=== PATIENT | female | born 1955 | race Two or more races ===

== ENCOUNTER → 2016-08-21 | Outpatient (CLI) | payer BC | END | disposition home or self-care (01) | LOC: LABWHC1 15:58 | PROVIDERS: ATTEND Orthopaedic Surgery | DX: Z01.812 Encounter for preprocedural laboratory examination (principal) | CPT/HCPCS: 87070 ==

== ENCOUNTER 2016-09-02 11:07 | Inpatient (IN) | payer BC ==
[~2016-09-02 11:07] MED LIST: ACETAMINOPHEN TAB 500 MG TAB PO ONE; DEXAMETHASONE SOD PHOSPHATE 10 MG/ML 1 ML VIAL IV ONE; HYDROmorphone 1 MG/ML 1 ML SYRINGE IVP PRN; MELOXICAM 7.5 MG TAB PO ONE; ONDANSETRON 4 MG/2 ML VIAL IVP ONE; TRANEXAMIC ACID 1,000 MG in SODIUM CHLORIDE 0.9% 100 ML IVPB ONE; ceFAZolin 2 GM in SODIUM CHLORIDE 0.9% 100 ML IVPB ONE
[2016-09-02] MEDS: LACTATED RINGERS 1,000 ML IV SCH (12:28)
[2016-09-02] MEDS ORDERED: LIDOCAINE 1% 20 ML VIAL (10MG/ML) FOR IV START INTRADERMA ONE (12:29)
[2016-09-02] MEDS ORDERED: MIDAZOLAM 2 MG/2 ML VIAL IVP ONE ×2 (12:37→13:15)
[2016-09-02] MEDS: ROPIVACAINE 246.25 MG, EPINEPHrine 0.5 MG, KETOROLAC 30 MG, cloNIDine HCL/PF 80 MCG, WA... MISCELLANE ONE ×10 (13:26→14:45)
[2016-09-02] MEDS ORDERED: KETAMINE 10 MG/ML 20 ML VIAL ONE (13:27)
[2016-09-02] MEDS ORDERED: PHENYLEPHRINE-0.9% NACL SYG 1 MG/10 ML SYRINGE ONE (13:27)
[2016-09-02] MEDS ORDERED: TRANEXAMIC ACID 1,000 MG/10 ML VIAL ONE (13:27)
[2016-09-02] MEDS ORDERED: HEPARIN SODIUM,PORCINE 10,000 UNIT/ML 1 ML VIAL ONE (13:27)
[2016-09-02] MEDS ORDERED: PROPOFOL 10 MG/ML 20 ML VIAL IV ONE (13:27)
[2016-09-02] MEDS ORDERED: SODIUM CHLORIDE 0.9% IRRIG 1,000 ML BTL IRRIGATION ONE (13:27)
[2016-09-02] MEDS ORDERED: ceFAZolin 3,000 MG in SODIUM CHLORIDE 0.9% IRRIGATIO 3,000 ML IRRIGATION ONE (13:27)
[2016-09-02] MEDS ORDERED: SODIUM CHLORIDE 0.9% 100 ML BAG ONE (13:27)
[2016-09-02] MEDS ORDERED: ePHEDrine 50 MG/ML 1 ML AMP ONE (13:27)
[2016-09-02] MEDS ORDERED: MIDAZOLAM 2 MG/2 ML VIAL ONE (13:27)
[2016-09-02] MEDS ORDERED: fentaNYL (PF) 50 MCG/ML 2 ML AMP ONE (13:27)
--- NOTE | 2016-09-02 14:56 | FL ---
EXAMINATION TYPE: FL guidance operating room DATE OF EXAM: 09/02/2016 2:52 PM HISTORY: Flouroscopy time 51 seconds of fluoroscopy provided. IMPRESSION: 1. Fluoroscopy time.
--- NOTE | 2016-09-02 14:57 | XR ---
EXAMINATION TYPE: XR Hip Limited RT DATE OF EXAM: 09/02/2016 2:52 PM COMPARISON: NONE HISTORY: Right hip surgery TECHNIQUE: One view submitted. FINDINGS: There is a prosthetic hip in near anatomic alignment. IMPRESSION: 1. Limited assessment demonstrates only a portion of the prostheses.. Appears in near-anatomic align ment as visualized.
[2016-09-02] MEDS ORDERED: LACTATED RINGERS 1,000 ML IV ONE (15:00)
[2016-09-02] MEDS ORDERED: MAGNESIUM HYDROXIDE 2,400 MG/10 ML CUP PO PRN (15:12)
[2016-09-02] MEDS ORDERED: NALOXONE 0.4 MG/ML 1 ML VIAL IV PRN (15:12)
[2016-09-02] MEDS ORDERED: HYDROcodone/APAP 5-325MG 1 EACH TAB PO PRN (15:12)
[2016-09-02] MEDS ORDERED: DIAZEPAM 5 MG TAB PO PRN ×2 (15:12)
[2016-09-02] MEDS ORDERED: HYDROmorphone 1 MG/ML 1 ML SYRINGE IVP PRN ×3 (15:12)
[2016-09-02] MEDS ORDERED: ONDANSETRON 4 MG/2 ML VIAL IVP PRN (15:12)
--- NOTE | 2016-09-02 15:19 | P.OP ---
Date of Procedure: 09/02/16 Preoperative Diagnosis: Severe osteoarthritis right hip Postoperative Diagnosis: Severe osteoarthritis right hip Procedure(s) Performed: Right total hip arthroplasty with a direct anterior approach Implants: Salazar and nephew Polarstem size 1 standard Salazar [employer] Nephew R3, 3 hole acetabular shell, 48 mm Salazar [employer]hew reflection 6.5 mm cancellus screw, 20 mm 3 Salazar [employer]hew R3, XLPE 20 acetabular liner Salazar [employer] Nephew Oxinium femoral head 32 m, +0 All components were press-fit. The articulation is ceramic on polyethylene. Anesthesia: spinal Surgeon: Layo Bañuelos Ice Guard Inspector #1: Dulce Veliz Ice Guard Inspector #2: Kezia Thakkar Estimated Blood Loss (ml): 150 (55 mL returned with Cell Saver) Pathology: other (Femoral head) Condition: stable Disposition: PACU Indications for Procedure: After failure of conservative treatment we discussed the surgical and nonsurgical treatment options at length. Patient wishes to proceed with a total hip arthroplasty with a direct anterior approach. Complications specific to this procedure were discussed at length, including but not limited to infection, leg length discrepancy, dislocation, and nerve injury. Patient is aware of all these complications and informed consent was obtained Operative Findings: The operative findings are consistent with severe osteoarthritis of the right hip Description of Procedure: Patient was seen and evaluated in the preoperative area, consent was reviewed, and the surgical site was marked with a skin marker. Patient was then brought to the operating room and given prophylactic antibiotics intravenously. 1 g of Tranexamic acid was also given. A spinal anesthetic was administered by the anesthesia department. The patient was then placed on the [place] table with the bony prominences well-padded. The hip area was then prepped and draped in usual sterile fashion. A universal timeout was then performed, which confirmed the patient's name, surgical site, ALLERGIES, and procedure being performed. Next the incision site was located at 1 cm distal and 1 cm lateral to the anterior superior iliac spine. The skin and subcutaneous tissues were sharply incised. Incision was carefully dissected down to the fascia overlying the tensor fascia sascha muscle. This fascia was then incised in line with the incision. Next, using blunt finger dissection, the tensor fascia sascha muscle was dissected off its investing fascia. The muscle was then carefully retracted laterally with a cobra retractor over the lateral neck of the femur. Next, the circumflex vessels were identified and cauterized using the AquaMantis device. The anterior hip capsule was then exposed. The capsule was then opened and an inverted T fashion. Retention sutures were placed in the inferior arms of the capsule. Cobra retractors were then placed intracapsularly. The proximal femur was then visualized. The femoral neck was then osteotomized appropriate level above the lesser trochanter. Small amount of traction was placed with the [place] table. A small wedge of bone was then removed from the remaining femoral head. Next, using a corkscrew femoral head was easily removed from the acetabulum. On gross visual inspection, the femoral head had complete loss of articular cartilage in multiple periarticular osteophytes. Attention was then turned to the acetabulum. the acetabulum was exposed and any remaining labrum was excised. Sequential reaming of the acetabulum was performed using fluoroscopic guidance. When the appropriate size was reached, a trial was then placed. The position and fit of the trial was checked with fluoroscopy. The trial was then removed. Then, using fluoroscopic guidance, the final implant was impacted at 20 of anteversion and 40 of abduction, and fully seated in the acetabulum. 3 screws were then placed in the acetabulum. Again fluoroscopy was used to check position of the screws. Next, the liner was then impacted, with a 20 elevated liner located in the anterior superior quadrant. Component locking was confirmed. Attention was then directed to the femur. With the aid of the [place] table, the femur was externally rotated to approximately 130, extended, and abducted under the opposite leg. A side hook was then placed under the proximal femur, and the side hook elevator was used to elevate the proximal femur. Retractors were then placed. A capsular release was performed, as well as a release of the conjoined tendon, which afforded excellent visualization of the proximal femur. Next, a box osteotome was used to lateralize the proximal femur. A etcher hand was then used to locate the femoral canal. Sequential broaching was then performed with appropriate size which afforded excellent fixation in the proximal femur. A trial was then placed with appropriate head and neck, and the hip was gently reduced with the aid of the [place] table. Fluoroscopy was then used to check position of the components, as well as to ensure equal leg lengths. The hip was then gently dislocated and the trials were then removed. Final implants were then impacted and the hip was again reduced. Final fluoroscopic x-rays confirmed that the components were in anatomic position, as well as equal leg lengths. The hip was also taken through range of motion, and found to be stable. The hip was then copiously irrigated with antibiotic solution with pulsatile lavage. The hip was then irrigated with Irrisept solution. The soft tissues were then injected with a ropivacaine solution, which consisted of 246.25 mg of ropivacaine, 0.5 mg of epinephrine, 30 mg of Toradol, 80 g of clonidine, and 48.45 mL of sterile water, for a total of 100 mL of fluid injected. A second dose of 1 g of Tranexamic acid was also given. the fascia was then closed with 2-0 strata fix suture. The subcutaneous tissue was closed with 3-0 Vicryl. The subcuticular tissue was closed with 3-0 strata fix suture. The skin was then closed with Dermabond tape. The patient was then transferred to the recovery room in stable condition. The podiatrist assistant GIANNA Morin was required due to the complexity of surgery , and the need for skilled neurosurgical nurse for positioning, draping, exposure , retraction, and closure of the wound.
--- NOTE | 2016-09-02 15:34 | XR ---
EXAMINATION TYPE: XR Hip Limited RT DATE OF EXAM: 09/02/2016 3:29 PM COMPARISON: NONE HISTORY: Postop TECHNIQUE: One view submitted. FINDINGS: There is a prosthetic hip in near anatomic alignment. There is soft tissue edema and emphysema. IMPRESSION: 1. Postoperative change. Appears in near-anatomic alignment.
[2016-09-02 16:29] VITALS: BMI 4104.0
[2016-09-02] MEDS ORDERED: FAMOTIDINE 20 MG TAB PO PRN (17:11)
[2016-09-02] MEDS: HYDROcodone/APAP 5-325MG 1 EACH TAB PO PRN (18:20)
[2016-09-02] MEDS: SODIUM CHLORIDE 0.9% 1,000 ML IV SCH (18:21)
[2016-09-02] MEDS ORDERED: ATORVASTATIN 20 MG TAB PO SCH (18:30)
[2016-09-02] MEDS ORDERED: SENNOSIDES-DOCUSATE SODIUM 1 EACH TAB PO SCH (21:00)
[2016-09-02] MEDS ORDERED: ZOLPIDEM 10 MG TAB PO PRN (21:00)
[2016-09-02] MEDS: ASPIRIN 325 MG TAB PO SCH (21:15)
[2016-09-02] MEDS: ceFAZolin 2 GM in SODIUM CHLORIDE 0.9% 100 ML IVPB SCH (21:16)
[2016-09-03] MEDS: HYDROcodone/APAP 5-325MG 1 EACH TAB PO PRN ×3 (00:51→13:21)
[2016-09-03 02:08] VITALS: RESP 16
[2016-09-03] MEDS: ceFAZolin 2 GM in SODIUM CHLORIDE 0.9% 100 ML IVPB SCH (04:30)
--- NOTE | 2016-09-03 06:19 | CONS ---
DATE OF CONSULTATION: 09/02/2016 REASON FOR CONSULTATION: Medical management requested by Dr. Bañuelos. CONSULTATION: This is a pleasant 60-year-old patient of Dr. Armenta who has undergone right total hip arthroplasty. Pain is controlled. No nausea or vomiting. No chest pain. Patient's chronic stable medical conditions include gastroesophageal reflux disease, hypertension, osteoarthritis, insomnia. Lying in bed, patient's is at the bedside. REVIEW OF SYSTEMS: CONSTITUTIONAL: None. HEENT: None. RESPIRATORY: None. CARDIOVASCULAR: None. GASTROINTESTINAL: Heartburn. GENITOURINARY: None. MUSCULOSKELETAL: Pain in the joints. DERMATOLOGICAL: None. HEMATOLOGICAL: None. LYMPHATIC: None. PSYCHIATRY/NEUROLOGICAL: Difficulty sleeping. Past medical history of gastroesophageal reflux disease, hypertension, osteoarthritis, insomnia. PAST SURGICAL HISTORY: Orthopedic surgery, tonsillectomy, right knee arthroscopy. SOCIAL HISTORY: Patient smokes about 2 cigarettes a day. , drinks about 7 drinks per week. FAMILY HISTORY: Lung cancer. HOME MEDICATIONS: 1. Ambien 10 mg p.o. q.h.s. p.r.n. 2. Zantac 1 tablet p.o. daily p.r.n. 3. Dyazide 37.5/25, 1 tablet p.o. daily. 4. Menopausal vitamin pack 1 tablet daily. 5. Motrin 800 mg p.o. q.8 p.r.n. 6. Lipitor 20 mg p.o. before supper. ALLERGIES: None. On examination, temperature 97.6, pulse 86, respiration 20, blood pressure 117/69, pulse ox 98% on 3-L. GENERAL APPEARANCE: Average build, sitting up in bed, not in distress. EYES: Pupils equal. Conjunctivae normal. HEENT: External appearance of nose and ears normal. Oral cavity normal. NECK: JVD not raised. Mass not palpable. RESPIRATORY: Effort normal. Lungs are clear. CARDIOVASCULAR: First and second sounds normal. No edema. ABDOMEN: Soft, nontender. Liver and spleen not palpable. LYMPHATIC: No lymph node palpable in the neck or axillae. PSYCHIATRY: Alert and oriented x3. Mood and affect were normal. EXTREMITIES: Right hip in dressing. INVESTIGATIONS: None. ASSESSMENT: 1. Gastroesophageal reflux disease. 2. Essential hypertension. 3. Chronic insomnia. 4. Right total hip arthroplasty. 5. Hyperlipidemia. PLAN: Patient's home medications are resumed. Patient is getting aspirin for DVT prophylaxis, Venodyne boots in place. Care was discussed with the patient and family at the bedside. Questions were answered. Thank you Dr. Bañuelos.
[2016-09-03] MEDS: hydrOXYzine PAMOATE 25 MG CAP PO PRN ×2 (06:53→13:22)
[2016-09-03 07:44] VITALS: BP 112/69; PULSE 63; TEMP 97.6
[2016-09-03 07:50] LABS: Basophils % (A) 0 %; CH 32.8; CHCM 33.6; Eosinophils # (A) 0.1 k/uL (0-0.7); Eosinophils % (A) 1 %; HCT 31.5 % (34.0-46.0); HDW 2.18; HGB 10.5 gm/dL (11.4-16.0); Luc # (Auto) 0.12; Luc % (Auto) 1; Lymphocytes # (A) 1.7 k/uL (1.0-4.8); Lymphocytes % (A) 15 %; MCH 32.5 pg (25.0-35.0); MCHC 33.2 g/dL (31.0-37.0); MCV 97.8 fL (80.0-100.0); Mean Platelet Volume 6.4; Monocytes # (A) 0.8 k/uL (0-1.0); Monocytes % (A) 7 %; Neutrophils # (A) 9.1 k/uL (1.3-7.7); Neutrophils % (A) 77 %; RBC 3.22 m/uL (3.80-5.40); RDW 13.2 % (11.5-15.5); WBC 11.8 k/uL (3.8-10.6); WBC (Perox) 11.83
[2016-09-03] MEDS: LACTATED RINGERS 1,000 ML IV SCH (08:39)
[2016-09-03] MEDS: SODIUM CHLORIDE 0.9% 1,000 ML IV SCH (08:39)
[2016-09-03] MEDS: ASPIRIN 325 MG TAB PO SCH (08:44)
[2016-09-03] MEDS ORDERED: TRIAMTERENE-HCTZ 37.5-25MG 1 EACH CAP PO SCH (09:00)
[2016-09-03] MEDS ORDERED: MELOXICAM 7.5 MG TAB PO SCH (09:00)
--- NOTE | 2016-09-03 09:04 | P.DS ---
Providers Date of admission: 09/02/16 11:07 Expected date of discharge: 09/03/16 Attending physician: Layo Bañuelos Consults: 09/02/16 15:12 Consult Physician Routine Consulting Provider: Louie Olvera Consult Reason/Comments: medical management Do you want consulting provider notified?: Yes Primary care physician: Venus Rodriguez [facility] Course: This is a 60-year-old female with known history of degenerative arthritis of the right hip. The patient presents for evaluation. After discussion and consideration patient elects to proceed with total hip arthroplasty. The patient is seen preoperatively by Dr. Bañuelos and cleared for surgery. Patient is admitted to [facility] on 09/02/2016 for total hip arthroplasty. The procedures performed without complication or sequelae. The patient is doing well postoperatively. Labs and vital signs are stable on day of discharge. On day of discharge patient's hip incision is healing well. There is minimal erythema. There is no drainage noted at this time. There is minimal soft tissue swelling to the hip and thigh. Patient has full foot and ankle motion without difficulty or pain. Patient has been ambulating. Neurovascular status to the right lower extremity is intact. Patient is discharged home in good condition. Please see med rec for accurate list of home medications. Plan - Discharge Summary New Discharge Prescriptions: Aspirin 325 mg PO BID #60 tab HYDROcodone/APAP 5-325MG [Jackson 5-325] 1 - 2 tab PO Q4-6H PRN #90 tab PRN Reason: Pain Sennosides-Docusate Sodium [Senokot-S] 1 tab PO BID #60 tablet Discharge Medication List Acetaminophen Tab [Tylenol Tab] 650 mg PO Q4-6H PRN 08/29/16 [History] Atorvastatin [Lipitor] 20 mg PO PC-SUPPER 08/29/16 [History] Ibuprofen [Motrin] 800 mg PO Q8HR PRN 08/29/16 [History] Menopause Vitamin Pack 1 tab PO DAILY 08/29/16 [History] Triamterene-Hctz 37.5-25Mg [Dyazide 37.5-25 Capsule] 1 cap PO DAILY 08/29/16 [ History] Zantac (Unknown Dose Otc) 1 tab PO DAILY PRN 08/29/16 [History] Zolpidem [Ambien] 10 mg PO HS PRN 08/29/16 [History] Aspirin 325 mg PO BID #60 tab 09/03/16 [Rx] HYDROcodone/APAP 5-325MG [Jackson 5-325] 1 - 2 tab PO Q4-6H PRN #90 tab 09/03/16 [ Rx] Sennosides-Docusate Sodium [Senokot-S] 1 tab PO BID #60 tablet 09/03/16 [Rx] Follow up Appointment(s)/Referral(s): Layo Bañuelos DO [Doctor of Osteopathic Medicine] - 2 Weeks Activity/Diet/Wound Care/Special Instructions: Weightbearing as tolerated with walker May shower after 2 days if no drainage from the incision Follow-up with [facility] in 2 weeks with any questions or concerns Discharge Disposition: HOME WITH HOME HEALTH SERVICES
--- NOTE | 2016-09-03 12:40 | PN ---
DATE OF SERVICE: 09/03/2016 REASON FOR CONSULTATION: Right hip surgery. INTERVAL HISTORY: Patient is status post right hip surgery, doing well. Sitting up, comfortable. Did tolerate breakfast. Did work with physical therapy. Has been out of bed. Review of systems done for constitutional, cardiovascular, GI, pulmonary, musculoskeletal; relevant findings as above. Current medications are reviewed. On examination, temperature 97.6, pulse 53, respirations 16, blood pressure 112/69, pulse ox 97%. GENERAL APPEARANCE: Propped up in bed, comfortable. EYES: Pupils equal. Conjunctivae normal. NECK: JVD not raised. Mass not palpable. RESPIRATORY: Effort normal. Lungs are clear. CARDIOVASCULAR: First and second sounds normal. No edema. ABDOMEN: Soft, nontender. PSYCHIATRY: Alert and oriented x3. Mood and affect normal. INVESTIGATIONS: White count 11.8, hemoglobin 10.5. ASSESSMENT: 1. Gastroesophageal reflux disease. 2. Essential hypertension. 3. Chronic insomnia, idiopathic. 4. Right total hip arthroplasty. 5. Hyperlipidemia. 6. Possibly acute blood loss anemia as expected from surgery. PLAN: Continue current medication and treatment plan. Care was discussed with the patient and patient's at the bedside. Thank you Dr. Bañuelos.
== END 2016-09-03 16:13 | disposition home health service (06) | DRG 470 ==
LOC: 2ORMAIN 11:07 → 3SUR 15:09
PROVIDERS: ADMIT Orthopaedic Surgery; ATTEND Orthopaedic Surgery
PROC: 0SR904A Replacement of Right Hip Joint with Ceramic on Polyethylene Synthetic Substitute, Uncemented, Open Approach (ICD-10-PCS; principal; 2016-09-02 12:45)
DX: M16.11 Unilateral primary osteoarthritis, right hip (principal); I10 Essential (primary) hypertension; E78.5 Hyperlipidemia, unspecified; F17.210 Nicotine dependence, cigarettes, uncomplicated; F51.04 Psychophysiologic insomnia; K21.9 Gastro-esophageal reflux disease without esophagitis; Z79.899 Other long term (current) drug therapy
CPT/HCPCS: 73501; 85025; 86850; 86891; 86900; 86901; 88300

== ENCOUNTER → 2019-10-19 | Outpatient (CLI) | payer BC ==
--- NOTE | 2019-10-19 15:11 | MR ---
EXAMINATION TYPE: MR knee RT wo con DATE OF EXAM: 10/19/2019 COMPARISON: Plain film 10/04/2019 HISTORY: Right knee pain TECHNIQUE: Multiplanar, multisequence imaging of the right knee is performed without IV contrast. FINDINGS: MEDIAL MENISCUS: The root anchor of the posterior horn of the medial meniscus is thought to be disrup steph, there is fluid signal present at this level, frayed appearance is noted abnormal signal also pre sent within the body and anterior horn LATERAL MENISCUS: Anterior and posterior horns are intact without tear. CRUCIATE LIGAMENTS: The anterior and posterior cruciate ligaments are intact and unremarkable. COLLATERAL LIGAMENTS: Increased signal about the medial collateral ligament may be due to strain EXTENSOR MECHANISM: Visualized quadriceps and patellar tendons are intact. EFFUSION: Minimal joint effusion POPLITEAL CYST: Small semimembranosus gastrocnemius cyst is noted TRICOMPARTMENT SPACES: Maintained CARTILAGE: Intact BONE MARROW SIGNAL: Within the proximal tibia medially there is intermediate signal present in the me taphysis on T1, increased signal on T2-weighted sequences, the trabecular pattern is disrupted, there is linear low signal present seen better on T1-weighted sequences in the tibial plateau medially con sistent with nondisplaced fracture, microtrabecular fractures and bone marrow edema, contusion. OTHER: Subcutaneous edema changes are present anteriorly in the prepatellar location IMPRESSION: Nondisplaced fracture of the medial aspect of the proximal tibia, and is consistent with posttraumati c tear of the posterior root anchor of the of the medial meniscus
== END | disposition home or self-care (01) ==
LOC: RADMRIMAIN 13:14
PROVIDERS: ATTEND Orthopaedic Surgery
DX: S82.135A Nondisplaced fracture of medial condyle of left tibia, initial encounter for closed fracture (principal)

== ENCOUNTER → 2019-11-08 | Outpatient (CLI) | payer BC ==
[2019-11-08 15:16] LABS: Basophils % (A) 1 %; Eosinophils # (A) 0.3 k/uL (0-0.7); Eosinophils % (A) 5 %; HCT 35.8 % (34.0-46.0); HGB 11.8 gm/dL (11.4-16.0); Lymphocytes # (A) 2.2 k/uL (1.0-4.8); Lymphocytes % (A) 35 %; MCH 32.1 pg (25.0-35.0); MCHC 32.9 g/dL (31.0-37.0); MCV 97.7 fL (80.0-100.0); Mean Platelet Volume 6.7; Monocytes # (A) 0.4 k/uL (0-1.0); Monocytes % (A) 6 %; Neutrophils # (A) 3.4 k/uL (1.3-7.7); Neutrophils % (A) 53 %; Platelet Count 422 k/uL (150-450); RBC 3.66 m/uL (3.80-5.40); RDW 12.8 % (11.5-15.5); WBC 6.4 k/uL (3.8-10.6)
[2019-11-08 15:17] LABS: Potassium 3.9 mmol/L (3.5-5.1)
== END | disposition home or self-care (01) ==
LOC: LABPAT 14:21
PROVIDERS: ATTEND Orthopaedic Surgery
DX: Z01.818 Encounter for other preprocedural examination (principal); M23.91 Unspecified internal derangement of right knee
CPT/HCPCS: 36415; 80051; 85025; 93005

== ENCOUNTER 2019-11-14 08:57 | Day surgery (SDC) | payer BC ==
[2019-11-09 15:20] VITALS: BMI 27.3
--- NOTE | 2019-11-13 11:27 | HP ---
HISTORY AND PHYSICAL DATE OF SURGERY: 11/14/2019 HISTORY OF PRESENT ILLNESS: Gill Rojas is a 64-year-old patient seen with progressive right knee pain. We discussed options. She elected to proceed with right knee arthroscopy. Consent was obtained. PAST MEDICAL HISTORY: Hypertension, hyperlipidemia. PAST SURGICAL HISTORY: Right total hip arthroplasty, right knee arthroscopy. MEDICATIONS: Atorvastatin, ibuprofen, triamterene/hydrochlorothiazide, ibuprofen. ALLERGIES: None. SOCIAL HISTORY: She denies tobacco use. PHYSICAL EXAMINATION: Evaluation of the right knee shows range of motion 0-130. Mild effusion. Tenderness along the medial joint line. Tenderness along lateral joint line. Positive medial Orion's. Ligaments stable. Hip rotation without pain. Distal neurovascular exam is intact. IMAGING: Right knee radiographs revealed some sclerosis along the medial tibial plateau, mild osteoarthritis. Right knee MRI revealed a meniscal tear. IMPRESSION: 1. Internal derangement, right knee with medial meniscal tear. 2. Hyperlipidemia. 3. Hypertension. PLAN: Right knee arthroscopy with partial meniscectomy, partial synovectomy and debridement. MMODL / IJN: [id number] /
[~2019-11-14 08:57] MED LIST changes: -ACETAMINOPHEN TAB 500 MG TAB PO ONE; -DEXAMETHASONE SOD PHOSPHATE 10 MG/ML 1 ML VIAL IV ONE; +HYDROmorphone 0.5 MG/0.5 ML SYRINGE IVP PRN; -HYDROmorphone 1 MG/ML 1 ML SYRINGE IVP PRN; +LACTATED RINGERS 1,000 ML IV SCH; +LIDOCAINE 1% (10MG/ML) FOR IV START INTRADERMA PRN; -MELOXICAM 7.5 MG TAB PO ONE; -TRANEXAMIC ACID 1,000 MG in SODIUM CHLORIDE 0.9% 100 ML IVPB ONE; -ceFAZolin 2 GM in SODIUM CHLORIDE 0.9% 100 ML IVPB ONE
[2019-11-14] MEDS ORDERED: ONDANSETRON 4 MG/2 ML VIAL ONE (09:02)
[2019-11-14] MEDS ORDERED: LACTATED RINGERS 1,000 ML IV ONE (09:28)
[2019-11-14] MEDS ORDERED: MIDAZOLAM 2 MG/2 ML VIAL ONE (10:13)
[2019-11-14] MEDS ORDERED: BUPIVACAINE (PF) 0.25% 30 ML VIAL INTRAARTIC ONE (10:13)
[2019-11-14] MEDS ORDERED: LIDOCAINE 1% INJ 10MG/ML (20 ML MDV) ONE (10:13)
[2019-11-14] MEDS ORDERED: fentaNYL (PF) 50 MCG/ML 2 ML AMP ONE (10:13)
[2019-11-14] MEDS ORDERED: PROPOFOL 10 MG/ML 20 ML VIAL IV ONE (10:13)
[2019-11-14 11:05] VITALS: TEMP 97.2
--- NOTE | 2019-11-14 11:05 | P.OP ---
Date of Procedure: 11/14/19 Preoperative Diagnosis: Internal derangement right knee Postoperative Diagnosis: 1. Tear medial meniscus right knee 2. Reactive synovitis medial, lateral and suprapatellar compartments right knee Procedure(s) Performed: 1. Arthroscopic partial medial meniscectomy right knee 2. Arthroscopic partial synovectomy medial, lateral and suprapatellar compartments right knee Anesthesia: ALEJANDROA, local Surgeon: Ty Harper Estimated Blood Loss (ml): 5 Pathology: none sent Condition: stable Disposition: PACU Indications for Procedure: 64-year-old patient seen with progressive right knee pain. After treatment options were discussed, she elected to proceed with arthroscopy. Operative Findings: See description of procedure Description of Procedure: Patient was taken to the operative suite. Patient underwent a general an esthetic by the department of anesthesia. Patient was given preoperative antibiotics. The right lower extremity was placed in a well-padded arthroscopic leg edwards. The right leg was prepped and draped in the normal sterile orthopedic fashion. A lateral parapatellar and suprapatellar incision was made. Trochars were inserted. Arthroscopy was initiated. Suprapatellar pouch revealed diffuse thick reactive synovitis. The patellofemoral joint appeared to articulate congruently. There was grade 1 chondromalacia of the patella with no osteochondral tears present. The scope was guided into the medial gutter. No loose bodies or plica were identified. The scope was then guided into the medial compartment. A medial parapatellar incision was made. Trocar inserted followed by probe. There was a tear involving the posterior horn medial meniscus. There were grade 1/2 chondral malacia changes of the medial compartment. There were no osteochondral tears present. There was thick react eleni synovitis anteriorly. I performed a partial medial meniscectomy. I performed a partial synovectomy decompressing reactive synovitis. The residual meniscus was stable. There was good decompression of synovitis. Scope and probe were then guided into the intercondylar notch. Cruciates were identified, probed and found to be stable. The scope and probe were then guided into lateral compartment. Lateral meniscus revealed some mild superficial fraying along the mid body area. There were grade 1 chondromalacia changes of the lateral femoral condyle with no osteochondral tears present. There was thick reactive synovitis anteriorly. I performed a partial synovectomy decompressing reactive synovitis. There was good decompression of the synovitis. The scope was in guided back into the suprapatellar compartment. I introduced a motorized shaver into the suprapatellar compartment. I debrided some piecemeal fragments of meniscus I encountered. I performed a partial synovectomy. Shaver was removed. There was good decompression of synovitis. I took one more look on the entire knee, no residual debris. Instruments were now removed from the joint. The joint was infiltrated with .25% Marcaine. Steri-Strips were applied to the portal sites. Sterile dressings were applied. The patient was placed into a QUIN hose. No tourniquet was utilized. The patient was awakened, clark sferred to a bed and taken to recovery stable satisfactory condition.
[2019-11-14 11:31] VITALS: RESP 20
[2019-11-14 12:36] VITALS: BP 139/71; PULSE 49
== END 2019-11-14 12:37 | disposition home or self-care (01) ==
LOC: OR 08:57
PROVIDERS: ATTEND Orthopaedic Surgery
DX: M23.221 Derangement of posterior horn of medial meniscus due to old tear or injury, right knee (principal); M65.861 Other synovitis and tenosynovitis, right lower leg; M22.41 Chondromalacia patellae, right knee; I10 Essential (primary) hypertension; E78.5 Hyperlipidemia, unspecified; Z79.899 Other long term (current) drug therapy; Z96.641 Presence of right artificial hip joint; Z98.890 Other specified postprocedural states
CPT/HCPCS: 29881; J2250; J2405; J0690; J2001; J3010; J2704

== ENCOUNTER → 2020-03-23 | Outpatient (CLI) | payer BC | END | disposition home or self-care (01) | LOC: LABPAT 12:56 | PROVIDERS: ATTEND Orthopaedic Surgery | DX: Z01.818 Encounter for other preprocedural examination (principal); Z01.812 Encounter for preprocedural laboratory examination; M16.12 Unilateral primary osteoarthritis, left hip | CPT/HCPCS: 87070 ==

== ENCOUNTER 2020-04-02 09:25 | Observation (INO) | payer BC ==
[2020-03-28 13:12] VITALS: BMI 27.3
--- NOTE | 2020-04-01 10:35 | HP ---
HISTORY AND PHYSICAL REASON FOR ADMISSION: Surgery is scheduled for 04/02/2020 HISTORY OF PRESENT ILLNESS: Gill Rojas is a 64-year-old patient seen with symptomatic left hip osteoarthritis. We discussed options for treatment. She elected to proceed with left total hip arthroplasty. Consent obtained. Medical clearance was provided by Dr. Ilya Salazar. PAST MEDICAL HISTORY: Hyperlipidemia, hypertension. PAST SURGICAL HISTORY: Right total hip arthroplasty, right knee arthroscopy. DAILY MEDICATIONS: Atorvastatin, ibuprofen, triamterene/hydrochlorothiazide. ALLERGIES: NONE. SOCIAL HISTORY: She denies current tobacco use. PHYSICAL EXAMINATION: Evaluation of the left hip: There is very limited range of motion with severe pain. Positive hip impingement sign. Diffuse tenderness about the hip girdle. Diffuse weakness about the hip girdle. Straight leg raise negative. Distal neurovascular exam is intact. RADIOGRAPHS: Radiographs of the left hip reveal severe osteoarthritic changes. IMPRESSION: 1. Left hip osteoarthritis. 2. Hypertension. 3. Hyperlipidemia. PLAN: Direct anterior left total hip arthroplasty. Surgery 04/02/2020. MMODL / IJN: [id number] /
[~2020-04-02 09:25] MED LIST changes: +ACETAMINOPHEN TAB 500 MG TAB PO PRN; -LIDOCAINE 1% (10MG/ML) FOR IV START INTRADERMA PRN; +MELOXICAM 7.5 MG TAB PO PRN; +ROPIVACAINE 246.25 MG, EPINEPHrine 0.5 MG, KETOROLAC 30 MG, cloNIDine HCL/PF 80 MCG, WA... MISCELLANE PRN; +TRANEXAMIC ACID 1,000 MG in SODIUM CHLORIDE 0.9% 100 ML IVPB PRN
[2020-04-02] MEDS ORDERED: DEXAMETHASONE SOD PHOSPHATE 4 MG/ML 1 ML VIAL IVP ONE (10:14)
[2020-04-02] MEDS ORDERED: PROPOFOL 10 MG/ML 20 ML VIAL IV ONE (10:28)
[2020-04-02] MEDS ORDERED: SODIUM CHLORIDE 0.9% 100 ML BAG ONE (10:28)
[2020-04-02] MEDS ORDERED: TRANEXAMIC ACID 1,000 MG/10 ML VIAL ONE (10:28)
[2020-04-02] MEDS ORDERED: fentaNYL (PF) 50 MCG/ML 2 ML AMP ONE (10:28)
[2020-04-02] MEDS ORDERED: GLYCOPYRROLATE 0.2 MG/ML 2 ML VIAL ONE (10:28)
[2020-04-02] MEDS ORDERED: MIDAZOLAM 2 MG/2 ML VIAL ONE (10:28)
[2020-04-02] MEDS ORDERED: PHENYLEPHRINE 10 MG/ML VIAL ONE (10:28)
[2020-04-02] MEDS: Ropivacaine 246 mg in RECK SYR 246 MG, Epinephrine 0.5 mg in RECK SYR 0.5 MG, Clonidine... MISCELLANE PRN ×2 (11:08→11:49)
[2020-04-02] MEDS ORDERED: LACTATED RINGERS 1,000 ML IV ONE (11:37)
[2020-04-02] MEDS ORDERED: ceFAZolin 1,000 MG in SODIUM CHLORIDE 0.9% 1,000 ML IRRIGATION ONE (11:38)
[2020-04-02] MEDS ORDERED: HYDROcodone/APAP 5-325MG 1 EACH TAB PO PRN ×2 (12:04)
[2020-04-02] MEDS ORDERED: HYDROmorphone 0.2 MG/1 ML SYRINGE IVP PRN (12:04)
[2020-04-02] MEDS ORDERED: NALOXONE 0.4 MG/ML 1 ML VIAL IV PRN (12:04)
[2020-04-02] MEDS ORDERED: ONDANSETRON 4 MG/2 ML VIAL IVP PRN (12:04)
[2020-04-02] MEDS ORDERED: HYDROmorphone 0.5 MG/0.5 ML SYRINGE IVP PRN (12:04)
--- NOTE | 2020-04-02 12:04 | P.OP ---
Date of Procedure: 04/02/20 Preoperative Diagnosis: Left hip osteoarthritis Postoperative Diagnosis: Left hip osteoarthritis Procedure(s) Performed: Direct anterior left total hip arthroplasty Implants: 1. Depuy Corail KA size 11 standard collar press-fit femoral stem 2. Depuy pinnacle 52 mm press-fit acetabular shell 3. Depuy pinnacle polyethylene acetabular liner neutral 36 mm ID 52 mm OD 4. Biolox delta ceramic femoral head +5 36 mm Anesthesia: local, spinal Surgeon: Ty Harper [employer] Consultant #1: Rasheed Castle Estimated Blood Loss (ml): 100 Pathology: other (Femoral head) Condition: stable Disposition: PACU Indications for Procedure: 64-year-old patient seen with symptomatic left hip osteoarthritis. After treatment options were discussed, she elected to proceed with total hip arthroplasty. Operative Findings: See description of procedure Description of Procedure: The patient was taken to the operative suite. Patient underwent a spinal anesthetic by the department of anesthesia. Patient was then transferred to the [facility] table. Patient was given preoperative IV antibiotics and TXA. Both lower extremities were placed in standard leg spars. The hip was then prepped and d raped in the normal sterile orthopedic fashion. A standard anterior incision was made beginning 3 cm lateral and 1 cm distal to the ASIS extending 10 cm. Dissection was then carried down through the subcutaneous soft tissues down to the fascia overlying the tensor fascia sascha. An incision was now made through the fascia. Careful dissection was taken down exposing the tensor fascia sascha muscle. A Cobra retractor was now placed along the medial femoral neck and a second one along the lateral femoral neck. The venous circumflex vessels were now identified, cauterized and clipped. We identified the anterior hip capsule. An incision was made through the hip capsule along the lateral border. I performed a partial anterior capsulectomy. Retractors were now placed around the femoral neck itself. A femoral neck cut was now made with a sagittal saw. It was completed with an osteotome at the lateral neck area. The femoral head was now removed without difficulty. The extremity was now rotated to 45 of external rotation. It was locked in position. Residual labrum was now debrided out. Serial reaming was performed of the acetabulum while Julio KATZ assisted holding an anterior retractor for exposure. Once we reached the appropriate size and a trial was position and fit nicely. The appropriate size was now chosen opened and made available. It was introduced into the acetabulum without difficulty. The C-arm/fluoroscopy was now brought into the operative field. We made sure we had a true AP pelvic view. We now under direct C- arm/fluoroscopy introduced into the acetabular component with appropriate version and inclination. I held the cup in appropriate position well Julio KATZ used a mallet to seat the acetabular component. I noted the component now to be well seated and stable. Acetabular cup introduce her was removed. The C-arm was pulled back. An appropriate liner was introduced and clicked into position. It was felt to be stable. At this point retractors were removed. The extremity was now placed into 120 external rotation with no traction. The leg was now dropped to the ground and adducted. Appropriate retractors were now positioned along the proximal femur. We also placed our femoral look into position. Additional capsular releasing was performed to gain access to the proximal femur. We now used a box osteotome. A canal finder was now utilized. Serial broaching was now performed with the assistance of Julio KATZ tapping the broaches down with a mallet while held the broach in appropriate rotation and position. This was done until we reached the appropriate size with good overall rotational stability. Appropriate calcar planing was performed. A trial head/neck was placed into position. The hip was now reduced. The C- arm/fluoroscopy was brought back into the operative field. A spot film was obtained of the nonoperative hip. A spot film was obtained of the trial components. Overlays were performed, we noted good overall alignment and positioning for determining leg length. The C-arm/fluoroscopy was pulled back. Retractors were repositioned and the hip was dislocated. The leg was again taken down to the ground and adducted. Appropriate retractors were repositioned as well as the femoral hook. All trial components were removed. The femoral implant was opened along with the femoral head. The femoral implant was introduced on the appropriate handle into our pre-broached area. I held the component position well Julio KATZ used a mallet to seat the femoral component. The femoral component was now noted to be well seated and stable.. The femoral head was introduced with good positioning and fixation noted. Retractors were now removed. The hip was now reduced. There appeared be good positioning of the hip confirmed on intraoperative fluoroscopy. Spot films were obtained to document this. A second gram of TXA was given. The deep and superficial soft tissues were infiltrated with local analgesic. Bipolar cautery had been utilized intermittently through the procedure for hemostasis. The wound was irrigated copiously with pulse lavage mechanical irrigation. The fascia was repaired with Vicryl suture. The subcutaneous soft tissues were repaired in layers with Vicryl suture. The skin was approximated with pernio/Dermabond. Sterile dressings were applied. Patient was then awakened, transferred to a bed and taken to recovery in stable condition. Julio KATZ assisted with the complex procedure.
--- NOTE | 2020-04-02 12:11 | FL ---
EXAMINATION TYPE: FL guidance operating room DATE OF EXAM: 04/02/2020 HISTORY: Fluoroscopy time 7 seconds of fluoroscopy provided. IMPRESSION: 1. Fluoroscopy time.
[2020-04-02] MEDS: LACTATED RINGERS 1,000 ML IV SCH ×3 (15:37→19:43)
[2020-04-02] MEDS: HYDROmorphone 1 MG/ML 1 ML SYRINGE IVP PRN (20:32)
[2020-04-02] MEDS ORDERED: SENNOSIDES-DOCUSATE SODIUM 1 EACH TAB PO SCH (21:00)
[2020-04-02] MEDS ORDERED: ZOLPIDEM 5 MG TAB PO PRN (22:10)
--- NOTE | 2020-04-02 22:12 | P.CONS ---
History of Present Illness - Reason for Consult Consult date: 04/02/20 Medical management Requesting physician: Ty Harper - Chief Complaint Left hip pain - History of Present Illness Consultation: This is a pleasant 64-year-old patient of Dr. Jeremy Salazar. Chronic stable medical conditions include GERD, hypertension, osteoarthritis, hyperlipidemia, insomnia from hip pain. Patient is undergoing left total hip arthroplasty. Po st procedure. Reclining in bed. Comfortable. It is well controlled. No nausea vomiting. No chest pain or shortness breath. Review of systems: GEN.: None EYES: None HEENT: None NECK: None RESPIRATORY: None CARDIOVASCULAR: None GASTROINTESTINAL: None GENITOURINARY: None MUSCULOSKELETAL: Joint pains LYMPHATICS: None HEMATOLOGICAL: None PSYCHIATRY: None NEUROLOGICAL: Insomnia Past medical history to include: GERD, hypertension, osteoarthritis, hyperlipidemia, insomnia Social history: Patient smoked 2 cigarettes a day. Has about 7-10 drinks a week. . Physical examination: VITAL SIGNS: Afebrile, 18, 16, 164/81, 97% room air GENERAL: BMI 27.6, laying in bed, comfortable. EYES: Pupils equal. Conjunctiva normal. HEENT: External appearance of nose and ears normal, oral cavity grossly normal. NECK: JVD not raised; masses not palpable. HEART: First and second heart sounds are normal; no edema. LUNGS: Respiratory rate normal; clear to auscultation. ABDOMEN: Soft, nontender, liver spleen not palpable, no masses palpable. PSYCH: Alert and oriented x3; mood and affect normal. MUSCULAR skeletal: Dressing over the right hip. Evidence of OA. NEUROLOGICAL: Cranial nerves grossly intact; no facial asymmetry, power and sensation grossly intact. LYMPHATICS: No lymph nodes palpable in the axilla and neck Investigations: None Assessment: -Left total hip arthroplasty -GERD -Essential hypertension -Primary osteoarthritis -Hyperlipidemia -Insomnia from arthritic pain Plan: Home medications resumed. Patient received IV Ancef for perioperative infection prophylaxis. Getting subcu Lovenox for DVT prophylaxis per Dr. Neves. Care was discussed with the patient question also. Getting IV lactated Ringer's. Patient is to follow-up with family doctor per discharge Thank you Dr. Neves Past Medical History Past Medical History: GERD/Reflux, Hypertension, Osteoarthritis (OA) History of Any Multi-Drug Resistant Organisms: None Reported Past Surgical History: Cholecystectomy, Joint Replacement, Orthopedic Surgery, Tonsillectomy Additional Past Surgical History / Comment(s): HERNIA REPAIR (INFANT), RIGHT KNEE ARTHROSCOPY x2, right hip replaced Past Anesthesia/Blood Transfusion Reactions: No Reported Reaction Past Psychological History: No Psychological Hx Reported Smoking Status: Current every day smoker Past Alcohol Use History: Occasional Additional Past Alcohol Use History / Comment(s): SMOKES APPROX. 2 CIGARETTES PER DAY. SMOKING ON AND OFF FOR 15- 20 YEARS. STATES SHE DRINKS USUALLY OVER 7 DRINKS PER WEEK. Past Drug Use History: None Reported - Past Family History Mother Family Medical History: Cancer Additional Family Medical History / Comment(s): LUNG CANCER Medications and Allergies Home Medications Medication Instructions Recorded Confirmed Type Acetaminophen Tab [Tylenol] 650 mg PO Q4-6H PRN 08/29/16 03/28/20 History Atorvastatin [Lipitor] 20 mg PO HS 08/29/16 03/28/20 History Triamterene-Hctz 37.5-25Mg 1 cap PO DAILY 08/29/16 03/28/20 History [Dyazide 37.5-25 Capsule] Zolpidem [Ambien] 10 mg PO HS PRN 08/29/16 03/28/20 History Omeprazole [PriLOSEC] 20 mg PO AC-BRKFST 11/09/19 03/28/20 History Allergies Allergy/AdvReac Type Severity Reaction Status Date / Time No Known Allergies Allergy Verified 04/02/20 09:58 Physical Exam Vitals: Vital Signs Temp Pulse Pulse Resp BP BP Pulse Ox 04/02/20 17:00 80 16 164/81 97 04/02/20 16:00 57 L 16 122/71 99 04/02/20 15:30 57 L 16 125/71 97 04/02/20 15:00 60 16 120/70 98 04/02/20 14:30 55 L 16 136/68 97 04/02/20 14:15 62 16 129/67 97 04/02/20 13:45 53 L 16 118/63 100 04/02/20 13:30 51 L 16 101/54 99 04/02/20 13:15 54 L 16 99/49 100 04/02/20 13:00 54 L 16 98/45 100 04/02/20 12:49 54 L 16 90/48 100 04/02/20 12:39 65 16 83/47 100 04/02/20 12:24 96.9 F L 82 16 82/46 97 04/02/20 10:03 98.3 F 91 16 139/83 98 Intake and Output 04/02/20 04/02/20 04/02/20 06:59 14:59 22:59 Intake Total 1451 675 Output Total 100 Balance 1351 675 Intake: IV 1451 675 Output: Estimated Blood Loss 100 Other: Weight 64.2 kg 64.2 kg
[2020-04-02] MEDS ORDERED: ATORVASTATIN 20 MG TAB PO SCH (22:15)
[2020-04-03] MEDS: HYDROmorphone 1 MG/ML 1 ML SYRINGE IVP PRN (01:24)
[2020-04-03] MEDS: LACTATED RINGERS 1,000 ML IV SCH (07:18)
[2020-04-03] MEDS ORDERED: PANTOPRAZOLE 40 MG TABLET PO SCH (07:30)
[2020-04-03 07:48] VITALS: BP 123/54; PULSE 70; RESP 16; TEMP 98.6
[2020-04-03 08:24] LABS: Basophils % (A) 1 %; Eosinophils # (A) 0.1 k/uL (0-0.7); Eosinophils % (A) 1 %; HCT 33.1 % (34.0-46.0); HGB 11.2 gm/dL (11.4-16.0); Lymphocytes # (A) 1.9 k/uL (1.0-4.8); Lymphocytes % (A) 25 %; MCH 32.4 pg (25.0-35.0); MCHC 33.7 g/dL (31.0-37.0); MCV 96.1 fL (80.0-100.0); Mean Platelet Volume 6.6; Monocytes # (A) 0.5 k/uL (0-1.0); Monocytes % (A) 7 %; Neutrophils # (A) 4.9 k/uL (1.3-7.7); Neutrophils % (A) 65 %; Platelet Count 385 k/uL (150-450); RBC 3.44 m/uL (3.80-5.40); RDW 12.9 % (11.5-15.5); WBC 7.5 k/uL (3.8-10.6)
[2020-04-03] MEDS ORDERED: MELOXICAM 7.5 MG TAB PO SCH (09:00)
[2020-04-03] MEDS ORDERED: ENOXAPARIN 40 MG/0.4 ML SYRINGE SQ SCH (09:00)
[2020-04-03] MEDS ORDERED: TRIAMTERENE-HCTZ 37.5-25MG 1 EACH CAP PO SCH (09:00)
--- NOTE | 2020-04-03 11:15 | P.PN ---
Subjective Progress Note Date: 04/03/20 Principal diagnosis: Status post right anterior left total hip arthroplasty Patient doing very well today, she is examined while resting in her hospital chair. She did, however goals of physical therapy. Her pain is well- controlled. She denies any headaches, lightheadedness, chest pain or shortness of breath. Objective - Vital Signs Vital signs: Vital Signs Temp 98.6 F 04/03/20 07:47 Pulse 70 04/03/20 07:47 Resp 16 04/03/20 07:47 BP 123/54 04/03/20 07:47 Pulse Ox 95 04/03/20 07:47 Intake & Output 04/02/20 04/03/20 04/03/20 18:59 06:59 18:59 Intake Total 2125 800 200 Output Total 100 Balance 2025 800 200 Weight 64.2 kg Intake: IV 2125 Intake, IV Titration 800 Amount Lactated Ringers 1,000 ml 800 @ 100 mls/hr IV .Q10H JAYLAN Rx#:[id number] Oral 200 Output: Estimated Blood Loss 100 Other: # Voids 1 - Exam Left lower extremity: Incision is clean, dry, and intact. The foam dressing is in good condition. There is minimal soft tissue swelling and ecchymosis surrounding the medial and lateral aspects of the incision. Calf is soft, no tenderness with palpation. Plantar flexion, dorsiflexion, EHL, FHL are intact. Sensory exam to light touch throughout the extremity is intact, dorsal pedis pulses 2+. - Labs CBC & Chem 7: 04/03/20 07:36 Labs: Abnormal Lab Results - Last 24 Hours (Table) 04/03/20 Range/Units 07:36 RBC 3.44 L (3.80-5.40) m/uL Hgb 11.2 L (11.4-16.0) gm/dL Hct 33.1 L (34.0-46.0) % Assessment and Plan Assessment: Status post direct anterior left total hip arthroplasty Plan: Pain control, plan for discharge home on Rattan 5 mg/325 mg DVT prophylaxis, aspirin 81 mg for 30 days Wound care instructions discussed, icing and elevating techniques discussed Home health care after discharge Medical recommendations Plan for discharge home today Time with Patient: Less than 30
--- NOTE | 2020-04-03 11:18 | P.DS ---
Providers Date of admission: 04/02/2020 Expected date of discharge: 04/03/20 Attending physician: Ty Harper Consults: 04/02/20 12:04 Consult Physician Routine Consulting Provider: Jeremy Salazar Reason/Comments: Medical management Do you want consulting provider notified?: Yes Primary care physician: Jeremy Salazar MD Hospital Course: Date of admission: 04/02/2020 Date of discharge: 04/03/2020 Admission diagnosis: Status post direct anterior left total hip arthroplasty Discharge diagnosis: Same Attending physician: Dr. Harper Surgical procedures: Direct anterior left total hip arthroplasty Brief history: Patient is a 64-year-old female with a history of with progressive primary left hip osteoarthritis. At this point patient has failed conservative treatment measures and has opted to proceed with a elective direct anterior left total hip arthroplasty. Hospital course: Details of patient's surgery can be found in operative report. Patient tolerated the procedure well and was subsequently transported to orthopedic floor. Patient's orthopeidc and medical care was provided daily. Patient had daily laboratory tests performed for evaluation of overall blood counts. Patient had daily physical therapy to include strengthening range of motion as well as education with walker ambulation. Patient was treated with Lovenox for their postoperative DVT prophylaxis during their inpatient stay. Patient was noted to have a relatively uneventful postoperative course. Patient reported satisfactory pain control with oral pain medications by postoperative day 0. Patient showed satisfactory progress with physical therapy. Patient moved steadily through the program and had no difficulty meeting the goals by postoperative day 1. Given patient's otherwise satisfactory course and having met physical therapy goals, plan is to discharge patient home on postoperative day 1. Discharge condition/disposition: Patient will be discharged home in stable condition. Discharge medications: Instructions are given on resumption of patient's normal daily medications per primary care recommendation, in addition patient will be prescribed [place] 5 mg/325 mg, Colace 100 mg, aspirin 81 mg. Discharge instructions: 1. Wound care and infection precautions, keep incision dry and covered while showering, no lotions, creams, moisturizers. No soaking, tubs, pools, hottubs. Do not scrub over the incision. Okay to remove foam dressing on 04/09/2020 2. Weight-bear[as tolerate] with walker / cane until follow-up. 3. Ice and elevate when necessary. Do not exceed 20 minutes per hour with ice pack. 4. Utilize compression sleeve until seen at first follow up appointment. 5. Visiting nursing care. 6. Home physical therapy. 7. Pain meds and anticoagulants per prescription. 8. Pain medication has potential to cause constipation. Increase oral fluid and fiber intake. Contact primary care provider if you have not had a bowel movement within 48 hours after discharge 9. No anti-inflammatory medication until discussed at first post operative visit, this including Motrin, Aleve, Mobic, Diclofenac. 10. Follow up in office at 2 weeks postop with Julio Castle PA-C 11. Follow up with your primary care doctor 7-10 days after discharge. 12. Contact [facility] with any questions, . Procedures: Direct anterior left total hip arthroplasty Patient Condition at Discharge: Good Plan - Discharge Summary Discharge Rx Participant: Yes New Discharge Prescriptions: New Aspirin [Adult Low Dose Aspirin EC] 81 mg PO BID #60 tablet. [place] [Colace] 100 mg PO DAILY #30 capsule Hydrocodone/Acetaminophen [[place] 5-325] 1 - 2 each PO Q6HR PRN #56 tab PRN Reason: Pain No Action Triamterene-Hctz 37.5-25Mg [Dyazide 37.5-25 Capsule] 1 cap PO DAILY Zolpidem [Ambien] 10 mg PO HS PRN PRN Reason: Insomnia Atorvastatin [Lipitor] 20 mg PO HS Acetaminophen Tab [Tylenol] 650 mg PO Q4-6H PRN PRN Reason: Pain Omeprazole [[facility]riLOSEC] [facility] Discharge Medication List Acetaminophen Tab [Tylenol] 650 mg PO Q4-6H PRN 08/29/16 [History] Atorvastatin [Lipitor] 20 mg PO HS 08/29/16 [History] Triamterene-Hctz 37.5-25Mg [Dyazide 37.5-25 Capsule] 1 cap PO DAILY 08/29/16 [History] Zolpidem [Ambien] 10 mg PO HS PRN 08/29/16 [History] Omeprazole [PriLOSEC] 20 mg PO AC-BRKFST 11/09/19 [History] Aspirin [Adult Low Dose Aspirin EC] 81 mg PO BID #60 tablet. 04/03/20 [Rx] Alan [Colace] 100 mg PO DAILY #30 capsule 04/03/20 [Rx] Hydrocodone/Acetaminophen [[place] 5-325] 1 - 2 each PO Q6HR PRN #56 tab 04/03/20 [Rx] Follow up Appointment(s)/Referral(s): Jeremy Salazar MD [Primary Care Provider] - 1 Week (Office will call you with your follow-up appointment. Thank you.) Rasheed Castle, ORAL [PHYSICIAN SUPERVISOR DECORATING] - 04/25/20 1:30 pm [facility], [REFERRING] - ([facility] will call you to set up first visit. ) Patient Instructions/Handouts: *Surgery [facility] - ([facility]) Shoulder Discharge Instructions Activity/Diet/Wound Care/Special Instructions: Orthopedic Discharge Instructions: 1. Wound care and infection precautions, keep incision dry and covered while showering, no lotions, creams, moisturizers. No soaking, pools, hot tubs. Do not scrub over incision. Okay to remove phone dressing on 04/09/2020 2. Weight-bear as tolerated with walker / cane until follow-up. 3. Ice and elevate when necessary. Do not exceed 20 minutes per hour with ice pack. 4. Utilize compression sleeve until seen at first follow up appointment. 5. Pain meds and anticoagulants per prescription. 6. Pain medication has potential to cause constipation. Increase oral fluid and fiber intake. Contact primary care provider if you have not had a bowel moveme nt within 48 hours after discharge. 7. No anti-inflammatory medication until discussed at first post operative visit, this including Motrin, Aleve, Mobic, Diclofenac. 8. Follow up in office at 2 weeks postop with Julio Castle PA-C 9. Follow up with your primary care doctor 7-10 days after discharge. 10. Contact [facility] with any questions, . Discharge Disposition: HOME WITH HOME HEALTH SERVICES
--- NOTE | 2020-04-03 22:26 | P.PN ---
Progress Note - Text Progress Note Date: 04/03/20 - Chief Complaint Left hip pain Consultation: This is a pleasant 64-year-old patient of Dr. Jeremy Salazar. Chronic stable medical conditions include GERD, hypertension, osteoarthritis, hyperlipidemia, insomnia from hip pain. Underwent left total hip arthroplasty. Today-sitting up. Comfortable. Some pain is present. No nausea vomiting. Did tolerate her breakfast. Did work with therapy. No chest pain or shortness of breath. Review of systems: Was done for constitutional, cardiovascular, GI, pulmonary. relevant finding as above Current medications reviewed in today's electronic records Physical examination: VITAL SIGNS: 98.6, 70, 16, 123 with 6054, 95% room air GENERAL: Sitting up,, comfortable. EYES: Pupils equal. Conjunctiva normal. NECK: JVD not raised; masses not palpable. HEART: First and second heart sounds are normal; no edema. LUNGS: Respiratory rate normal; clear to auscultation. ABDOMEN: Soft, nontender, liver spleen not palpable, no masses palpable. PSYCH: Alert and oriented x3; mood and affect normal. MUSCULAR skeletal: Dressing over the right hip. Evidence of OA. Investigations: White count 7.5 hemoglobin 11.2 Assessment: -Left total hip arthroplasty -GERD -Essential hypertension -Primary osteoarthritis -Hyperlipidemia -Insomnia from arthritic pain Plan: Continue current medication treatment plan. Follow-up with PCP upon discharge. Thank you Dr. Neves
== END 2020-04-03 13:27 | disposition home health service (06) ==
LOC: OR 09:25 → 4SSUR 17:34 → OR 23:54 → 4SSUR 23:55
PROVIDERS: ADMIT Orthopaedic Surgery; ATTEND Orthopaedic Surgery
DX: M16.12 Unilateral primary osteoarthritis, left hip (principal); I10 Essential (primary) hypertension; E78.5 Hyperlipidemia, unspecified; K21.9 Gastro-esophageal reflux disease without esophagitis; G47.00 Insomnia, unspecified; F17.210 Nicotine dependence, cigarettes, uncomplicated; Z79.899 Other long term (current) drug therapy; Z90.49 Acquired absence of other specified parts of digestive tract; Z96.641 Presence of right artificial hip joint; Z80.1 Family history of malignant neoplasm of trachea, bronchus and lung
CPT/HCPCS: 97110; 97161; 85025; 88300; 73501; 27130; G0378 ×2; C1776; J2250; J1100; J2370; J0690 ×3; J2405; J1650; J3010; J1170 ×3; J2704; 36415; 86850; 86900; 86901

== ENCOUNTER → 2020-06-04 | Outpatient (CLI) | payer BC ==
--- NOTE | 2020-06-04 12:39 | MR ---
EXAMINATION TYPE: MR shoulder LT wo con DATE OF EXAM: 06/04/2020 COMPARISON: Outside radiographs 05/15/2020 HISTORY: 64-year-old female M25.512 Pain in left shoulder TECHNIQUE: Multiplanar, multisequence imaging of the left shoulder is performed without contrast. FINDINGS: Prominent motion artifacts. The technologist reports that the patient had heavy breathing and coughin g throughout the scan. Abnormal signal of the intracapsular portion of the long biceps tendon. The extracapsular portion hollie ears appropriately situated along the bicipital groove but with moderate tenosynovial fluid. The inferior half of the subscapularis tendon fibers appear diminutive and possibly torn, refer to sa gittal series 601 image 12. Moderate to severe joint space narrowing and marginal spurring and capsular hypertrophy at the acromi oclavicular joint. Inferior spurring slightly contacts the underlying myotendinous junction of supras pinatus. There is a full-thickness tear of essentially the entire supraspinatus tendon. The stump is retracted by 2.3 cm. Tear measures 2.3 cm AP as well. Extensive heterogeneous signal the infraspinatus tendon. There may be some intrasubstance extension o f tear into the anterior first mediastinum fibers. [id number] fatty infiltration of the subscapularis muscle belly. No significant muscle atrophy of the supraspinatus or infraspinatus. Inferior spurring at the humeral head. Moderate cartilage loss along the superior half of the humeral head articular surface. There is abnormal signal within the superior labrum with a 4 mm superior par alabral cyst. Posterior labrum is degenerative informed. Small left humeral joint effusion. No Hill-Sachs deformity or os acromiale. Patchy red marrow is present again be seen in setting of anemia, obesity, smoking, and chronic diseas e. IMPRESSION: 1. Prominent motion artifacts due to the patient's heavy breathing and coughing throughout the scan. 2. Full-thickness tear of essentially the entire supraspinatus tendon measuring 2.3 cm AP and stump r etracted by 2.3 cm as well. 3. Some intrasubstance tearing extends into the anterior fibers of the infraspinatus tendon. 4. Suspect a significant tear of the subscapularis tendon involving at least the inferior half fibers . Mild to moderate fatty atrophy of its muscle belly. 5. Abnormal signal of the intracapsular portion of the long head biceps tendon could reflect tendinos is or partial tear. Associated tenosynovitis. 6. Mild to moderate glenohumeral joint OA with a degenerative and torn labrum. Moderate to severe AC joint OA.
== END | disposition home or self-care (01) ==
LOC: RADMRIMAIN 10:34
PROVIDERS: ATTEND Orthopaedic Surgery
DX: M19.012 Primary osteoarthritis, left shoulder (principal); S46.911A Strain of unspecified muscle, fascia and tendon at shoulder and upper arm level, right arm, initial encounter; M89.8X1 Other specified disorders of bone, shoulder; M65.811 Other synovitis and tenosynovitis, right shoulder; M67.813 Other specified disorders of tendon, right shoulder; R93.7 Abnormal findings on diagnostic imaging of other parts of musculoskeletal system

== ENCOUNTER → 2020-06-06 | Outpatient (CLI) | payer BC ==
[2020-06-06 15:28] LABS: Basophils # (A) 0.1 k/uL (0-0.2); Basophils % (A) 1 %; Eosinophils # (A) 0.5 k/uL (0-0.7); Eosinophils % (A) 7 %; HCT 37.9 % (34.0-46.0); HGB 12.5 gm/dL (11.4-16.0); Lymphocytes % (A) 30 %; MCH 32.3 pg (25.0-35.0); MCHC 33.1 g/dL (31.0-37.0); MCV 97.7 fL (80.0-100.0); Mean Platelet Volume 6.3; Monocytes # (A) 0.4 k/uL (0-1.0); Monocytes % (A) 5 %; Neutrophils # (A) 3.6 k/uL (1.3-7.7); Neutrophils % (A) 55 %; Platelet Count 466 k/uL (150-450); RBC 3.88 m/uL (3.80-5.40); RDW 13.4 % (11.5-15.5); WBC 6.6 k/uL (3.8-10.6)
[2020-06-06 15:52] LABS: Potassium 3.7 mmol/L (3.5-5.1)
== END | disposition home or self-care (01) ==
LOC: LABPAT 15:03
PROVIDERS: ATTEND Orthopaedic Surgery
DX: M75.41 Impingement syndrome of right shoulder (principal)
CPT/HCPCS: 36415; 80051; 85025

== ENCOUNTER 2020-06-18 09:17 | Day surgery (SDC) | payer BC ==
[2020-06-13 10:46] VITALS: BMI 27.3
--- NOTE | 2020-06-17 11:17 | HP ---
HISTORY AND PHYSICAL DATE OF SURGERY: 06/18/2020 HISTORY OF PRESENT ILLNESS: Gill Rojas is a 64-year-old patient seen with progressive left shoulder pain. After having treatment options discussed with the patient, she elected to proceed with arthroscopy. Consent was obtained. PAST MEDICAL HISTORY: Hyperlipidemia, hypertension. PAST SURGICAL HISTORY: Right total hip arthroplasty, left total hip arthroplasty, right knee arthroscopy. DAILY MEDICATIONS: Atorvastatin, ibuprofen, triamterene/hydrochlorothiazide, hydrocodone. ALLERGIES: NONE. SOCIAL HISTORY: She denies current tobacco use. PHYSICAL EVALUATION OF THE LEFT SHOULDER: Flexion is 110 degrees, abduction is 90 degrees, external rotation is 40 degrees with significant weakness, tenderness along the anterolateral acromion and rotator cuff insertion site. Impingement positive at 90 degrees. Cross-body adduction sign is positive. Drop-arm sign is positive. Distal neurovascular exam is intact. RADIOGRAPHS: Left shoulder radiographs revealed a type 2 acromion, acromioclavicular joint osteoarthritis and cystic changes of the greater tuberosity. Left shoulder MRI revealed a large retracted rotator cuff tendon tear along with severe acromioclavicular joint osteoarthritis. IMPRESSION: 1. Left shoulder impingement with rotator cuff tear. 2. Left shoulder acromioclavicular joint osteoarthritis. 3. Hypertension. 4. Hyperlipidemia. PLAN: Left shoulder arthroscopy with subacromial decompression, arthroscopic rotator cuff repair, Omid procedure and debridement. MMODL / IJN: [id number] /
[~2020-06-18 09:17] MED LIST changes: -ACETAMINOPHEN TAB 500 MG TAB PO PRN; +DEXAMETHASONE SOD PHOSPHATE 4 MG/ML 1 ML VIAL IV ONE; +LIDOCAINE 1% (10MG/ML) FOR IV START INTRADERMA PRN; -MELOXICAM 7.5 MG TAB PO PRN; +MIDAZOLAM 2 MG/2 ML VIAL IV PRN; -ROPIVACAINE 246.25 MG, EPINEPHrine 0.5 MG, KETOROLAC 30 MG, cloNIDine HCL/PF 80 MCG, WA... MISCELLANE PRN; -TRANEXAMIC ACID 1,000 MG in SODIUM CHLORIDE 0.9% 100 ML IVPB PRN
[2020-06-18] MEDS ORDERED: MIDAZOLAM 2 MG/2 ML VIAL IV ONE (11:35)
[2020-06-18] MEDS ORDERED: SUCCINYLCHOLINE CHLORIDE 100 MG/5 ML SYR IV ONE (13:13)
[2020-06-18] MEDS ORDERED: PROPOFOL 10 MG/ML 20 ML VIAL IV ONE (13:13)
[2020-06-18] MEDS ORDERED: ROCURONIUM 10 MG/ML (5 ML VIAL) IV ONE (13:13)
[2020-06-18] MEDS ORDERED: DEXAMETHASONE SOD PHOSPHATE 4 MG/ML 1 ML VIAL ONE (13:13)
[2020-06-18] MEDS ORDERED: LIDOCAINE 1% INJ 10MG/ML (20 ML MDV) ONE (13:13)
[2020-06-18] MEDS ORDERED: MIDAZOLAM 2 MG/2 ML VIAL ONE (13:13)
[2020-06-18] MEDS ORDERED: fentaNYL (PF) 50 MCG/ML 2 ML AMP ONE (13:13)
[2020-06-18] MEDS ORDERED: ROPIVACAINE 5 MG/ML 30 ML VIAL ONE (13:13)
--- NOTE | 2020-06-18 13:22 | P.ANPRN ---
Procedure Note - Anesthesia - Nerve Block Performed Left Interscalene Single Time Out Performed: Yes Date of Procedure: 06/18/20 Procedure Start Time: 11:33 Procedure Stop Time: 11:40 Location of Patient: PreOp Indication: Acute Post-Operative Pain, Requested by Surgeon Sedation Type: Sedate with meaningful contact maintained Preparation: Sterile Prep Position: Supine Needle Types: Pajunk Needle Gauge: 21 Ultrasound used to visualize needle placement: Yes Ultrasound used to observe medication spread: Yes Blood Aspirated: No Pain Paresthesia on Injection Noted: No Resistance on Injection: Normal Image Stored and Saved: Yes Events: Uneventful and Well Tolerated (ropi .5% 20cc plus dexamethasone 4mg)
[2020-06-18] MEDS ORDERED: LACTATED RINGERS 1,000 ML IV ONE ×2 (15:02)
--- NOTE | 2020-06-18 15:08 | P.OP ---
Date of Procedure: 06/18/20 Preoperative Diagnosis: Left shoulder impingement Postoperative Diagnosis: 1. Left shoulder rotator cuff tear 2. Left shoulder impingement 3. Left shoulder acromioclavicular joint osteoarthritis 4. Left shoulder partial long head biceps tendon tear 5. Left shoulder superficial labral tear 6. 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 Left shoulder arthroscopic rotator cuff repair 2. Left shoulder arthroscopic subacromial decompression 3. Left shoulder arthroscopic Omid procedure 4. Left shoulder arthroscopic biceps tenotomy 5. Left shoulder arthroscopic debridement labral tear 6. Left shoulder arthroscopic chondroplasty humeral head Implants: 2Arthrex 4.75 swivel lock anchors 2Arthrex 5.5 swivel lock anchors Anesthesia: GETA, regional (Interscalene block) Surgeon: Ty Harper Final Inspector Movement Assembly #1: Rasheed Castle Estimated Blood Loss (ml): 11 Pathology: none sent Condition: stable Disposition: PACU Indications for Procedure: 64-year-old patient seen with progressive left shoulder pain. After treatment options were discussed, she elected to proceed with arthroscopy. Operative Findings: see description of procedure Description of Procedure: Patient underwent an interscalene block by department of anesthesia. The patient was then taken to the operative suite. The patient underwent a general anesthetic by the department of anesthesia. The patient was placed into a lateral position and secured. There was appropriate padding of the bony prominence. Left shoulder was then prepped and draped in normal sterile orthopedic fashion. We placed the extremity in 10 pounds of longitudinal traction. A posterior incision was now made for a posterior working portal site. The trocar and cannula were inserted into the glenohumeral joint. Arthroscopy was initiated. Spinal needle was now inserted anteriorly, to ascertain the anterior working portal site. An incision was now made in that area, a trocar was inserted followed by a probe. There was some superficial tearing of the superior labrum. There was significant partial tearing long head biceps tendon. There were grade re-, changes of the humeral head with some osteochondral flap tears present.. I could a large rotator cuff tear from the glenohumeral side. I performed an arthroscopic biceps tenotomy. I performed a chondroplasty of the humeral head getting down to stable osteochondral tissue. I debrided that superficial labral tear getting down to stable labral tissue. The residual labrum was probed and was found to be stable. Residual osteochondral surface was stable. Instruments now removed from glenohumeral joint. Utilizing the posterior working portal site, the trocar and cannula were inserted into the subacromial space. Arthroscopy initiated. I made an incision 2 fingerbreadths lateral to the acromion. I introduced my trocar followed by my ArthroCare ablator. I now began ablating thick subacromial bursal tissue, which exposed the undersurface of the anterior acromion. There was diminished subacromial space. There was a very prominent anterior acromion. A motorized bur was introduced and a subacromial decompression was performed. I also excised some osteophytes off the inferior aspect of the distal clavicle. The AC joint was visualized and noted to be fairly arthritic. The motorized bur was introduced in the anterior portal site and a Omid procedure was performed without difficulty, decompressing the AC joint nicely. I turned my attention to the rotator cuff. There was a 3 cm rotator cuff tear. I debrided the margins getting down to stable tendon tissue. I introduced my motorized bur and abraded the footprint area, getting some petechial bleeding. I now made an accessory portal site off the lateral aspect of the acromion. I punched 2 holes medial for medial row fixation with the assistance of Julio KATZ carefully tapping the punch with a mallet as I held the punch and the camera. I now introduced both anchors into the pre-punched holes and Julio KATZ tapped them with the mallet as I held anchors and the camera. Juilo KATZ now screwed the anchors in place a while I held the anchor guide and camera. All 8 limbs of suture were now passed through good bites of rotator cuff tendon. I now punched 2 holes for lateral row fixation again I held the punch and camera while Julio KATZ used a mallet to tap in the punch. We now passed sutures through both anchors and individually I introduced the anchors into the pre-punch holes I held the anchor guide in position with one hand holding the camera with the other hand while Julio KATZ tensioned the sutures and screwed in the anchors one at a time. All residual suture limbs were now clipped. We had good compression of the tendon along the entire footprint. I injected 1 mL Renyte intra-articular. Instruments now removed from the portal sites. All portal sites were approximated with nylon suture. Sterile dressings were applied followed by a shoulder immobilizer. Rasheed KATZ assisted in this complex case. The patient was awakened, transferred to a bed, and taken to recovery in stable condition.
[2020-06-18 15:12] VITALS: TEMP 97
[2020-06-18 16:01] VITALS: RESP 20
[2020-06-18 17:11] VITALS: PULSE 68
[2020-06-18 17:12] VITALS: BP 130/74
== END 2020-06-18 16:54 | disposition home or self-care (01) ==
LOC: OR 09:17
PROVIDERS: ATTEND Orthopaedic Surgery
DX: M75.102 Unspecified rotator cuff tear or rupture of left shoulder, not specified as traumatic (principal); M25.812 Other specified joint disorders, left shoulder; M19.012 Primary osteoarthritis, left shoulder; M94.212 Chondromalacia, left shoulder; M25.712 Osteophyte, left shoulder; S43.432A Superior glenoid labrum lesion of left shoulder, initial encounter; X58.XXXA Exposure to other specified factors, initial encounter; F17.210 Nicotine dependence, cigarettes, uncomplicated; K21.9 Gastro-esophageal reflux disease without esophagitis; E78.5 Hyperlipidemia, unspecified; I10 Essential (primary) hypertension; Z96.643 Presence of artificial hip joint, bilateral; Z98.890 Other specified postprocedural states; Z79.1 Long term (current) use of non-steroidal anti-inflammatories (NSAID); Z79.891 Long term (current) use of opiate analgesic; Z79.899 Other long term (current) drug therapy
CPT/HCPCS: 64415; 76942; 29826; 29827; 29824; C1713 ×2; J2250; J1100; J2405; J0690; J2001; J3010; J2795; J0330; J2704

== ENCOUNTER → 2020-11-06 | Outpatient (CLI) | payer BC ==
--- NOTE | 2020-11-06 12:45 | MR ---
EXAMINATION TYPE: MR shoulder RT wo con DATE OF EXAM: 11/06/2020 COMPARISON: 02/23/2021 HISTORY: Right shoulder pain x 6 months. Arthritis. TECHNIQUE: Multiplanar, multisequence imaging of the right shoulder is performed without contrast. FINDINGS: Rotator Cuff: There is a full-thickness supraspinatus tendon tear with approximately 3.5 cm of tendon retraction. There is marked thinning of the infraspinatus tendon. There is subscapularis tendinopath y with fraying at the footplate. Teres minor tendon is intact. Acromioclavicular Joint: Degenerative changes without subacromial spur for for os acromiale. There is fluid in the subacromial/subdeltoid bursa. Glenohumeral Joint: The humeral head is high riding. The articular cartilage of the glenohumeral join t is grossly preserved. Labrum: The labrum appears grossly intact given limitation of non-arthrogram study. Biceps Tendon: The long head biceps tendon is partially torn with tendinopathy of the intra-articular portion. Bone marrow signal: No focal abnormal marrow signal is appreciated. Other: There is fatty atrophy of the supraspinatus muscle. IMPRESSION: 1. Supraspinatus full thickness tendon tear with tendon retraction and fatty atrophy of the muscle. 2. Thinning of the infraspinatus tendon. 3. Subscapularis tendinopathy with fraying at the footplate. 4. High riding humeral head. 5. Degenerative changes of the acromioclavicular joints with fluid in the subacromial/other sources. 6. Partially torn long head biceps tendon with tendinopathy.
== END | disposition home or self-care (01) ==
LOC: RADMRIMAIN 11:04
PROVIDERS: ATTEND Orthopaedic Surgery
DX: M19.011 Primary osteoarthritis, right shoulder (principal); M75.111 Incomplete rotator cuff tear or rupture of right shoulder, not specified as traumatic; M62.511 Muscle wasting and atrophy, not elsewhere classified, right shoulder; M66.821 Spontaneous rupture of other tendons, right upper arm; M75.81 Other shoulder lesions, right shoulder

== ENCOUNTER → 2020-12-19 | Outpatient (CLI) | payer BC ==
[2020-12-19 16:39] LABS: Basophils % (A) 1 %; Eosinophils # (A) 0.2 k/uL (0-0.7); Eosinophils % (A) 4 %; HCT 39.6 % (34.0-46.0); HGB 13.5 gm/dL (11.4-16.0); Lymphocytes # (A) 1.1 k/uL (1.0-4.8); Lymphocytes % (A) 23 %; MCH 33.1 pg (25.0-35.0); MCHC 34.1 g/dL (31.0-37.0); MCV 96.9 fL (80.0-100.0); Mean Platelet Volume 6.6; Monocytes # (A) 0.5 k/uL (0-1.0); Monocytes % (A) 11 %; Neutrophils # (A) 2.9 k/uL (1.3-7.7); Neutrophils % (A) 59 %; Platelet Count 444 k/uL (150-450); RBC 4.08 m/uL (3.80-5.40); RDW 13.2 % (11.5-15.5)
[2020-12-19 16:48] LABS: Potassium 4.2 mmol/L (3.5-5.1)
== END | disposition home or self-care (01) ==
LOC: LABPAT 16:17
PROVIDERS: ATTEND Orthopaedic Surgery
DX: Z01.812 Encounter for preprocedural laboratory examination (principal); M75.41 Impingement syndrome of right shoulder
CPT/HCPCS: 36415; 80051; 85025

== ENCOUNTER 2020-12-26 05:52 | Day surgery (SDC) | payer BC ==
[2020-12-19 09:38] VITALS: BMI 27.3
--- NOTE | 2020-12-25 10:16 | HP ---
HISTORY AND PHYSICAL HISTORY OF PRESENT ILLNESS: Gill Rojas is a 65-year-old patient seen with progressive right shoulder pain. We discussed options for treatment. She elected to proceed with arthroscopy. Consent was obtained. PAST MEDICAL HISTORY: Hypertension, hyperlipidemia. PAST SURGICAL HISTORY: Right total hip arthroplasty and right knee arthroscopy. DAILY MEDICATIONS: Atorvastatin, triamterene/hydrochlorothiazide. ALLERGIES: None. SOCIAL HISTORY: She denies tobacco use. PHYSICAL EVALUATION OF THE RIGHT SHOULDER: Flexion is 140, abduction is 90, external rotation 70 with weakness, tenderness along the anterolateral acromion rotator cuff insertion site. Impingement is positive at 90. Drop-arm sign is positive. Cross-body adduction sign is positive. Distal neurovascular exam is intact. RADIOGRAPHS: Right shoulder radiographs revealed a type 2 acromion along with acromioclavicular joint osteoarthritis. A right shoulder MRI revealed a retracted rotator cuff tendon tear, acromioclavicular joint osteoarthritis and partial biceps tendon tear. IMPRESSION: 1. Right shoulder impingement with rotator cuff tear. 2. Right shoulder acromioclavicular joint osteoarthritis. 3. Right shoulder partial biceps tendon tear. 4. Hyperlipidemia. 5. Hyperlipidemia. 6. Hypertension. PLAN: Right shoulder arthroscopy with subacromial decompression, rotator cuff repair, Omid procedure and debridement. Surgery scheduled for 12/26/2020. MMODL / IJN: [id number] /
[~2020-12-26 05:52] MED LIST changes: -HYDROmorphone 0.5 MG/0.5 ML SYRINGE IVP PRN
[2020-12-26 06:33] VITALS: TEMP 97.6
[2020-12-26] MEDS ORDERED: HYDROmorphone 0.5 MG/0.5 ML SYRINGE IVP PRN (07:00)
[2020-12-26] MEDS ORDERED: fentaNYL (PF) 50 MCG/ML 2 ML AMP IVP ONE (07:05)
[2020-12-26] MEDS ORDERED: MIDAZOLAM 2 MG/2 ML VIAL IVP ONE (07:05)
[2020-12-26] MEDS ORDERED: fentaNYL (PF) 50 MCG/ML 2 ML AMP ONE (07:25)
[2020-12-26] MEDS ORDERED: PROPOFOL 10 MG/ML 20 ML VIAL IV ONE (07:25)
[2020-12-26] MEDS ORDERED: SUCCINYLCHOLINE CHLORIDE 100 MG/5 ML SYR IV ONE (07:25)
[2020-12-26] MEDS ORDERED: ePHEDrine SULFATE/0.9% NACL/PF 50 MG/5 ML SYRINGE IV ONE (07:25)
[2020-12-26] MEDS ORDERED: DEXAMETHASONE SOD PHOSPHATE 4 MG/ML 1 ML VIAL ONE (07:25)
[2020-12-26] MEDS ORDERED: ROPIVACAINE 5 MG/ML 30 ML VIAL ONE (07:25)
[2020-12-26] MEDS ORDERED: LIDOCAINE 1% INJ 10MG/ML (20 ML MDV) ONE (07:25)
--- NOTE | 2020-12-26 09:30 | P.OP ---
Date of Procedure: 12/26/20 Preoperative Diagnosis: Right shoulder impingement Postoperative Diagnosis: 1. Right shoulder rotator cuff tear 2. Right shoulder impingement 3. Right shoulder acromioclavicular joint osteoarthritis 4. Right shoulder partial long head biceps tendon tear 5. 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 Right shoulder arthroscopic rotator cuff repair 2. Right shoulder arthroscopic subacromial decompression 3. Right shoulder arthroscopic Omid procedure 4. Right shoulder arthroscopic biceps tenotomy 5. Right shoulder chondroplasty humeral head Implants: 44.75 Arthrex swivel lock anchors Anesthesia: GETA, regional (Interscalene block) Surgeon: Ty Harper Glucose And Syrup Weigher #1: Anthony Agarwal Estimated Blood Loss (ml): 11 Pathology: none sent Condition: stable Disposition: PACU Indications for Procedure: 65-year-old patient seen with progressive right shoulder pain. After treatment options were discussed, she elected to proceed with arthroscopy. Operative Findings: see description of procedure Description of Procedure: Patient underwent an interscalene block by department of anesthesia. The patient was then taken to the operative suite. The patient underwent a general anesthetic by the department of anesthesia. The patient was placed into a lateral position and secured. There was appropriate padding of the bony p rominence. Right shoulder was then prepped and draped in normal sterile orthopedic fashion. We placed the extremity in 10 pounds of longitudinal traction. A posterior incision was now made for a posterior working portal site. The trocar and cannula were inserted into the glenohumeral joint. Arthroscopy was initiated. Spinal needle was now inserted anteriorly, to ascertain the anterior working portal site. An incision was now made in that area, a trocar was inserted followed by a probe. There was an area of grade 3 chondromalacia humeral head articulating surface with osteochondral flap tears present. There was about 6070 percent partial tearing long head biceps tendon. There was an obvious large rotator cuff tear. I performed arthroscopic biceps tenotomy. I performed a chondroplasty of the humeral head. I probed the chondroplasty here and it was stable. The labrum was again probed and found to be stable. Instruments were now removed glenohumeral joint. Utilizing the posterior working portal site, the trocar and cannula were inserted into the subacromial space. Arthroscopy initiated. I made an incision 2 fingerbreadths lateral to the acromion. I introduced my trocar followed by my ArthroCare ablator. I now began ablating thick subacromial bursal tissue, which exposed the undersurface of the anterior acromion. There was diminished subacromial space. There was a very prominent anterior acromion. A motorized bur was introduced and a subacromial decompression was performed. I also excised some osteophytes off the inferior aspect of the distal clavicle. The AC joint was visualized and noted to be fairly arthritic. The motorized bur was introduced in the anterior portal site and a Omid procedure was performed without difficulty, decompressing the AC joint nicely. I turned my attention to the rotator cuff. There was a 3.5 cm rotator cuff tear. I debrided the margins getting down to stable tendon tissue. It was retracted approximately 2 cm. I mobilized approximate. I could now pulled over the footprint. I introduced my motorized bur and abraded the footprint area, getting some petechial bleeding. I now made an accessory portal site off the lateral aspect of the acromion. I punched 2 holes medial for medial row fixation with the assistance of Anthony KATZ carefully tapping the punch with a mallet as I held the punch and the camera. I now introduced both anchors into the pre-punched holes and Anthony KATZ tapped them with the mallet as I held anchors and the camera. Anthony KATZ now screwed the anchors in place a while I held the anchor guide and camera. All 8 limbs of suture were now passed through good bites of rotator cuff tendon. I now punched 2 holes for lateral row fixation again I held the punch and camera while Anthony KATZ used a mallet to tap in the punch. We now passed sutures through both anchors and individually I introduced the anchors into the pre-punch holes. I held the anchor guide in position with one hand holding the camera with the other hand while Anthony KATZ tensioned the sutures and screwed in the anchors one at a time. All residual suture limbs were now clipped. We had good compression of the tendon along the entire footprint. Instruments now removed from the portal sites. All portal sites were approximated with nylon suture. Sterile dressings were applied followed by a shoulder immobilizer. Anthony KATZ assisted in this complex case. The patient was awakened, transferred to a bed, and taken to recovery in stable condition.
[2020-12-26 11:44] VITALS: RESP 20
[2020-12-26 11:45] VITALS: BP 122/70; PULSE 68
--- NOTE | 2020-12-26 13:07 | P.ANPRN ---
Procedure Note - Anesthesia - Nerve Block Performed Right Interscalene Time Out Performed: Yes (07:00) Date of Procedure: 12/26/20 Procedure Start Time: :00 Procedure Stop Time: :13 Location of Patient: PreOp Indication: Acute Post-Operative Pain, Requested by Surgeon (Dr Harper) Sedation Type: Sedate with meaningful contact maintained Preparation: Sterile Prep Position: Supine Catheter: None Needle Types: Pajunk Needle Gauge: Other (see comment) (22g) Ultrasound used to visualize needle placement: Yes Ultrasound used to observe medication spread: Yes Injectate: 0.5% Ropivacaine (see comment for volume) (20cc +decadron 4mg) Blood Aspirated: No Pain Paresthesia on Injection Noted: No Resistance on Injection: Normal Image Stored and Saved: Yes Events: Uneventful and Well Tolerated
== END 2020-12-26 11:47 | disposition home or self-care (01) ==
LOC: OR 05:52
PROVIDERS: ATTEND Orthopaedic Surgery
DX: M19.011 Primary osteoarthritis, right shoulder (principal); M25.811 Other specified joint disorders, right shoulder; M75.41 Impingement syndrome of right shoulder; M75.111 Incomplete rotator cuff tear or rupture of right shoulder, not specified as traumatic; S46.211A Strain of muscle, fascia and tendon of other parts of biceps, right arm, initial encounter; E78.5 Hyperlipidemia, unspecified; K21.9 Gastro-esophageal reflux disease without esophagitis; I10 Essential (primary) hypertension; Z79.899 Other long term (current) drug therapy; Z96.641 Presence of right artificial hip joint
CPT/HCPCS: 64415; 76942; 29824; 29826; 29827; 29828; C1713 ×2; J2250; J1100; J0690; J2405; J2001; J3010; J2795; J0330; J2704